=== PATIENT | female | born 1975 | race African-American/Black ===

== ENCOUNTER 2017-06-26 16:11 | Emergency (ER) | payer SELFPAY ==
[~2017-06-26 16:11] MED LIST: GABA600T PO; HYDR-3516 PO; IBUP-232 PO; NORC5TAB PO; TEMA30CA PO; [UNRECOGNIZED DRUG - CODE] PO
[2017-06-26 16:23] VITALS: BP 117/76; PULSE 73; RESP 18; TEMP 99; O2SAT 99
[2017-06-26] MEDS ORDERED: SODIUM CHLOR 0.9% 1000 ML INJ 1,000 ML IV SCH (17:18)
[2017-06-26] MEDS ORDERED: KETOROLAC TROMETHAMINE 30 MG/ML (IVP) VIAL IVP ONE (17:30)
[2017-06-26] MEDS ORDERED: ONDANSETRON HCL 4 MG/2 ML VIAL IVP ONE (17:30)
[2017-06-26] MEDS ORDERED: SODIUM CHLORIDE 0.9% FLUSH 10 ML FLUSH IV FLUSH PRN (17:30)
--- NOTE | 2017-06-26 17:33 | PD ---
Data Data Last Documented VS Vital Signs Date Time Temp Pulse Resp B/P (MAP) Pulse Ox O2 Delivery O2 Flow Rate FiO2 06/26/17 16:23 99.0 73 18 117/76 (90) 99 Orders Orders Complete Blood Count With Diff (06/26/17 16:29) Comprehensive Metabolic Panel (06/26/17 16:29) Urinalysis - C+S If Indicated (06/26/17 16:29) Lipase (06/26/17 16:29) Ondansetron Inj (Zofran Inj) (06/26/17 17:30) Sodium Chlor 0.9% 1000 Ml Inj (Ns 1000 M (06/26/17 17:18) Sodium Chloride 0.9% Flush (Ns Flush) (06/26/17 17:30) Ketorolac Inj (Toradol Inj) (06/26/17 17:30) MDM Supervised Visit with SAVI: Yes Narrative Course The history, exam, and medical decision-making in the associated mid-level provider note were completed with my assistance. I reviewed and agree with the findings presented. I attest that I had a [id number] encounter with the patient on the same day, and personally performed and documented my assessment and findings in the medical record. *My assessment and Findings: 41-year-old woman nausea vomiting diarrhea started yesterday after eating for crystals. She has copious vomiting copious watery diarrhea. She also has diffuse moderate abdominal pain. She is tearful and crying. She is a benign abdominal exam with some epigastric tenderness. Negative Torrez's. Recommend supportive treatment for infectious gastroenteritis. She states her oldest son ate the same food a little bit and got sick as well. Mike Martinez MD Jun 26, 2017 17:33
[2017-06-26] MEDS ORDERED: DICYCLOMINE HCL 20 MG/2 ML VIAL IM ONE (17:45)
[2017-06-26] MEDS ORDERED: LOPERAMIDE HCL 2 MG CAP PO ONE (17:45)
[2017-06-26] MEDS ORDERED: MORPHINE SULFATE 4 MG/ML INJ IV PUSH ONE ×2 (18:00→19:15)
--- NOTE | 2017-06-26 18:17 | PD ---
HPI Chief Complaint: GI Complaint Time Seen by Provider: 17:12 Travel History International Travel<30 days: No Contact w/Intl Traveler<30days: No Traveled to known affect area: No History of Present Illness HPI 41-year-old female presents to emergency department with complaint of nausea, vomiting, diarrhea since yesterday. Thinks she has food poisoning. Says she ate [employer] burgers and symptoms started an hour later. Her son also ate the food and got sick to. She reports severe abdominal cramping. Says she had a fever of 100.4 this morning. Last vomited an hour ago. Denies hematemesis, hematochezia. Denies history of abdominal surgeries. Has tried taking Pepto- Bismol and Kaopectate without relief of symptoms. Rates pain 8/10. Describes as cramping. Allergies to penicillin. Primary care provider is Dr. Hutchinson. Denies significant past medical history. Has no other medical complaints. No other modifying factors or associated signs and symptoms. PFSH Past Medical History Arthritis: Yes Blood Disorders: No Anxiety: Yes Cancer: No Cardiovascular Problems: No Chemotherapy: No Diminished Hearing: No Endocrine: No Gastrointestinal Disorders: No Genitourinary: No Immune Disorder: No Musculoskeletal: No Neurologic: No Psychiatric: No Reproductive: Yes (endometriosis ) Respiratory: No Radiation Therapy: No Sickle Cell Disease: No ?: Not LMP: "LAST WEEK" : 5 Para: 4 Miscarriage: 1 Tubal Ligation: Yes (07/2004) Past Surgical History Abdominal Surgery: No AICD: No Cardiac Surgery: No Ear Surgery: No Endocrine Surgery: No Eye Surgery: No Genitourinary Surgery: No Gynecologic Surgery: Yes (LAPROSCOPY IN 1995) Joint Replacement: No Neurologic Surgery: No Oral Surgery: No Pacemaker: No Thoracic Surgery: No Other Surgery: Yes Social History Alcohol Use: No Tobacco Use: Yes (SMOKES 1/2 PK A DAY) Substance Use: Yes Allergies-Medications (Allergen,Severity, Reaction): Coded Allergies: penicillin G (Unverified Allergy, Severe, hives, throat swelling, 06/26/17) Reported Meds & Prescriptions Reported Meds & Active Scripts Active Zofran Odt (Ondansetron Odt) 4 Mg Tab 4 Mg SL Q8HR PRN [place] (Hydrocodone-Acetaminophen) 5-325 mg Tab 1 Tab PO Q6H PRN Ibuprofen 600 Mg Tab 600 Mg PO Q6H PRN Cafergot (Ergotamine/Caffeine) 1 - Tab 1 Tab PO QIDPRN Reported Temazepam 30 Mg Cap 30 Mg PO HS PRN Gabapentin 600 Mg Tab 600 Mg PO TID Hydrocodone-Acetaminophen 5-325 mg Tab 1 Tab PO Q6H PRN Review of Systems Except as stated in HPI: all other systems reviewed are Neg Physical Exam Narrative GENERAL: Well-nourished, well-developed black female patient, in no acute distress; afebrile; tearful and appears painful SKIN: Warm and dry. HEAD: Atraumatic. Normocephalic. EYES: Pupils equal and round. No scleral icterus. No injection or drainage. ENT: Mucosa pink and moist. Airway patent. NECK: Trachea midline. CARDIOVASCULAR: Regular rate and rhythm. No murmur appreciated. RESPIRATORY: No accessory muscle use. Clear to auscultation. Breath sounds equal bilaterally. GASTROINTESTINAL: Abdomen soft, tenderness on palpation to epigastric region, nondistended. Hepatic and splenic margins not palpable. Bowel sounds are active 4 quadrants. Nonrigid. No rebound tenderness. No guarding. BACK: No CVA tenderness. MUSCULOSKELETAL: No obvious deformities. No clubbing. No cyanosis. No edema. NEUROLOGICAL: Awake and alert. Oriented 3. No obvious cranial nerve deficits. Motor grossly within normal limits. Normal speech. PSYCHIATRIC: Appropriate mood and affect; insight and judgment normal. Data Data Last Documented VS Vital Signs Date Time Temp Pulse Resp B/P (MAP) Pulse Ox O2 Delivery O2 Flow Rate FiO2 06/26/17 23:35 06/26/17 19:22 77 18 100 Room Air 06/26/17 16:23 99.0 Orders Orders Complete Blood Count With Diff (06/26/17 16:29) Comprehensive Metabolic Panel (06/26/17 16:29) Urinalysis - C+S If Indicated (06/26/17 16:29) Lipase (06/26/17 16:29) Ondansetron Inj (Zofran Inj) (06/26/17 17:30) Sodium Chlor 0.9% 1000 Ml Inj (Ns 1000 M (06/26/17 17:18) Sodium Chloride 0.9% Flush (Ns Flush) (06/26/17 17:30) Ketorolac Inj (Toradol Inj) (06/26/17 17:30) Loperamide (Imodium) (06/26/17 17:45) Dicyclomine Inj (Bentyl Inj) (06/26/17 17:45) Morphine Inj (Morphine Inj) (06/26/17 18:00) Morphine Inj (Morphine Inj) (06/26/17 19:15) Sodium Chlor 0.9% 1000 Ml Inj (Ns 1000 M (06/26/17 19:15) Ed Discharge Order (06/26/17 23:22) Ed Discharge Order (06/26/17 23:24) Labs Laboratory Tests Test 06/26/17 16:36 06/26/17 18:10 06/26/17 19:55 Urine Color YELLOW Urine Turbidity HAZY Urine pH 7.5 Urine Specific [place] 1.023 Urine Protein 30 mg/dL Urine Glucose (UA) NEG mg/dL Urine Ketones 10 mg/dL Urine Occult Blood SMALL Urine Nitrite NEG Urine Bilirubin NEG Urine Urobilinogen 8.0 MG/DL Urine Leukocyte Esterase SMALL Urine RBC 58 /hpf Urine WBC 4 /hpf Urine Squamous Epithelial Cells 9 /hpf Urine Bacteria RARE /hpf Urine Mucus MOD /lpf Microscopic Urinalysis Comment CULT NOT INDICATED White Blood Count 8.4 TH/MM3 Red Blood Count 4.47 MIL/MM3 Hemoglobin 14.2 GM/DL Hematocrit 41.8 % Mean Corpuscular Volume 93.4 FL Mean Corpuscular Hemoglobin 31.8 PG Mean Corpuscular Hemoglobin Concent 34.0 % Red Cell Distribution Width 13.8 % Platelet Count 281 TH/MM3 Mean Platelet Volume 8.4 FL Neutrophils (%) (Auto) 55.6 % Lymphocytes (%) (Auto) 35.2 % Monocytes (%) (Auto) 6.6 % Eosinophils (%) (Auto) 2.2 % Basophils (%) (Auto) 0.4 % Neutrophils # (Auto) 4.7 TH/MM3 Lymphocytes # (Auto) 2.9 TH/MM3 Monocytes # (Auto) 0.6 TH/MM3 Eosinophils # (Auto) 0.2 TH/MM3 Basophils # (Auto) 0.0 TH/MM3 CBC Comment DIFF FINAL Differential Comment Blood Urea Nitrogen 5 MG/DL Creatinine 0.93 MG/DL Random Glucose 84 MG/DL Total Protein 7.9 GM/DL Albumin 3.1 GM/DL Calcium Level 7.5 MG/DL Alkaline Phosphatase 62 U/L Aspartate Amino Transf (AST/SGOT) 13 U/L Alanine Aminotransferase (ALT/SGPT) 19 U/L Total Bilirubin 0.7 MG/DL Sodium Level 143 MEQ/L Potassium Level 3.5 MEQ/L Chloride Level 112 MEQ/L Carbon Dioxide Level 22.2 MEQ/L Anion Gap 9 MEQ/L Estimat Glomerular Filtration Rate 81 ML/MIN Lipase 59 U/L MDM Medical Decision Making Medical Screen Exam Complete: Yes Emergency Medical Condition: Yes Medical Record Reviewed: Yes Differential Diagnosis Gastroenteritis, gastritis, pancreatitis Narrative Course 41-year-old female with abdominal cramping, nausea, vomiting, diarrhea since yesterday. Symptoms started after eating [employer]. Her son had similar symptoms after eating the burgers also. She reports fever of 100.4 this morning. Patient is afebrile in the ER. She is tearful and appears painful. Has epigastric tenderness on palpation. Dr. Martinez evaluated the patient and we discussed the plan of care. IV, normal saline bolus, CBC, CMP, urinalysis, lipase, Zofran, Toradol, Bentyl ordered. 1800: Patient continues to complain of abdominal pain. Morphine 4 mg IV ordered. 1900: CBC unremarkable. On reexamination patient is in position and crying in pain. States her pain is still of 10 out of 10. 1923: Report given to Dr. Bourgeois at change of shift. See his note for final patient disposition. Scripts Ondansetron Odt (Zofran Odt) 4 Mg Tab 4 MG SL Q8HR Y for Nausea/Vomiting, #10 TAB 0 Refills Prov: Alberto Bourgeois MD 06/26/17 Disposition: DISCHARGE HOME Condition: Stable Jessica Gabriel Jun 26, 2017 18:17
[2017-06-26 18:55] LABS: AUTOMATED NEUTROPHIL # 4.7 TH/MM3 (1.8-7.7); BASOPHIL % 0.4 % (0.0-2.0); EOSINOPHIL # 0.2 TH/MM3 (0-0.4); EOSINOPHIL % 2.2 % (0.0-4.0); HEMATOCRIT 41.8 % (35.0-46.0); HEMOGLOBIN 14.2 GM/DL (11.6-15.3); LYMPH % 35.2 % (9.0-44.0); LYMPHOCYTE # 2.9 TH/MM3 (1.0-4.8); MEAN CELL VOLUME 93.4 FL (80.0-100.0); MEAN CORPUSCULAR HEMOGLOBIN 31.8 PG (27.0-34.0); MEAN PLATELET VOLUME 8.4 FL (7.0-11.0); MONO % 6.6 % (0.0-8.0); MONOCYTE # 0.6 TH/MM3 (0-0.9); NEUT % 55.6 % (16.0-70.0); PLATELET COUNT 281 TH/MM3 (150-450); RED BLOOD COUNT 4.47 MIL/MM3 (4.00-5.30); RED CELL DISTRIBUTION WIDTH 13.8 % (11.6-17.2); WHITE BLOOD COUNT 8.4 TH/MM3 (4.0-11.0)
[2017-06-26 19:14] LABS: ALKALINE PHOSPHATASE 62 U/L (45-117); TOTAL BILIRUBIN ADULT 0.7 MG/DL (0.2-1.0); TOTAL PROTEIN 7.9 GM/DL (6.4-8.2)
[2017-06-26] MEDS ORDERED: SODIUM CHLOR 0.9% 1000 ML INJ 1,000 ML IV ONE (19:15)
[2017-06-26 19:22] VITALS: BP 129/58; PULSE 77; RESP 18; O2SAT 100
[2017-06-26 20:49] LABS: BLOOD UREA NITROGEN 5 MG/DL (7-18); CALCIUM 7.5 MG/DL (8.5-10.1); CHLORIDE 112 MEQ/L (98-107); GLUCOSE,RANDOM 84 MG/DL (74-106); SODIUM (NA) 143 MEQ/L (136-145)
[2017-06-26 20:54] LABS: ALT (GPT) 19 U/L (10-53); AST (GOT) 13 U/L (15-37)
[2017-06-26 21:09] LABS: CREATININE 0.93 MG/DL (0.50-1.00); GLOMERULAR FILTRATION RATE 81 ML/MIN (>89)
[2017-06-26 21:10] LABS: BICARBONATE 22.2 MEQ/L (21.0-32.0)
[2017-06-26 21:35] LABS: ALBUMIN 3.1 GM/DL (3.4-5.0)
[2017-06-26 21:47] LABS: BACTERIA, URINE RARE /hpf; BILIRUBIN, URINE NEG (NEG); BLOOD, URINE SMALL (NEG); GLUCOSE,URINE NEG (NEG); KETONE, URINE 10 mg/dL (NEG); MUCUS URINE MOD /lpf (OCC); NITRITE,URINE NEG (NEG); PH, URINE 7.5 (5.0-8.5); SQUAMOUS EPITHELIAL CELL URINE 9 /hpf (0-5); URINE COLOR YELLOW (YELLW/STRAW); URINE LEUKOCYTE ESTERASE SMALL (NEG)
[2017-06-26] MEDS ORDERED: ZOFR4TAB3 SL (23:23)
--- NOTE | 2017-06-26 23:24 | PD ---
Data Data Last Documented VS Vital Signs Date Time Temp Pulse Resp B/P (MAP) Pulse Ox O2 Delivery O2 Flow Rate FiO2 06/26/17 23:35 06/26/17 19:22 77 18 100 Room Air 06/26/17 16:23 99.0 Orders Orders Complete Blood Count With Diff (06/26/17 16:29) Comprehensive Metabolic Panel (06/26/17 16:29) Urinalysis - C+S If Indicated (06/26/17 16:29) Lipase (06/26/17 16:29) Ondansetron Inj (Zofran Inj) (06/26/17 17:30) Sodium Chlor 0.9% 1000 Ml Inj (Ns 1000 M (06/26/17 17:18) Sodium Chloride 0.9% Flush (Ns Flush) (06/26/17 17:30) Ketorolac Inj (Toradol Inj) (06/26/17 17:30) Loperamide (Imodium) (06/26/17 17:45) Dicyclomine Inj (Bentyl Inj) (06/26/17 17:45) Morphine Inj (Morphine Inj) (06/26/17 18:00) Morphine Inj (Morphine Inj) (06/26/17 19:15) Sodium Chlor 0.9% 1000 Ml Inj (Ns 1000 M (06/26/17 19:15) Ed Discharge Order (06/26/17 23:22) Ed Discharge Order (06/26/17 23:24) Labs Laboratory Tests Test 06/26/17 16:36 06/26/17 18:10 06/26/17 19:55 Urine Color YELLOW Urine Turbidity HAZY Urine pH 7.5 Urine Specific [place] 1.023 Urine Protein 30 mg/dL Urine Glucose (UA) NEG mg/dL Urine Ketones 10 mg/dL Urine Occult Blood SMALL Urine Nitrite NEG Urine Bilirubin NEG Urine Urobilinogen 8.0 MG/DL Urine Leukocyte Esterase SMALL Urine RBC 58 /hpf Urine WBC 4 /hpf Urine Squamous Epithelial Cells 9 /hpf Urine Bacteria RARE /hpf Urine Mucus MOD /lpf Microscopic Urinalysis Comment CULT NOT INDICATED White Blood Count 8.4 TH/MM3 Red Blood Count 4.47 MIL/MM3 Hemoglobin 14.2 GM/DL Hematocrit 41.8 % Mean Corpuscular Volume 93.4 FL Mean Corpuscular Hemoglobin 31.8 PG Mean Corpuscular Hemoglobin Concent 34.0 % Red Cell Distribution Width 13.8 % Platelet Count 281 TH/MM3 Mean Platelet Volume 8.4 FL Neutrophils (%) (Auto) 55.6 % Lymphocytes (%) (Auto) 35.2 % Monocytes (%) (Auto) 6.6 % Eosinophils (%) (Auto) 2.2 % Basophils (%) (Auto) 0.4 % Neutrophils # (Auto) 4.7 TH/MM3 Lymphocytes # (Auto) 2.9 TH/MM3 Monocytes # (Auto) 0.6 TH/MM3 Eosinophils # (Auto) 0.2 TH/MM3 Basophils # (Auto) 0.0 TH/MM3 CBC Comment DIFF FINAL Differential Comment Blood Urea Nitrogen 5 MG/DL Creatinine 0.93 MG/DL Random Glucose 84 MG/DL Total Protein 7.9 GM/DL Albumin 3.1 GM/DL Calcium Level 7.5 MG/DL Alkaline Phosphatase 62 U/L Aspartate Amino Transf (AST/SGOT) 13 U/L Alanine Aminotransferase (ALT/SGPT) 19 U/L Total Bilirubin 0.7 MG/DL Sodium Level 143 MEQ/L Potassium Level 3.5 MEQ/L Chloride Level 112 MEQ/L Carbon Dioxide Level 22.2 MEQ/L Anion Gap 9 MEQ/L Estimat Glomerular Filtration Rate 81 ML/MIN Lipase 59 U/L MDM Medical Record Reviewed: Yes Supervised Visit with SAVI: Yes Narrative Course CBC & BMP Diagram 06/26/17 18:10 06/26/17 19:55 Total Protein 7.9, Albumin 3.1 L, Calcium Level 7.5 L, Alkaline Phosphatase 62, Aspartate Amino Transf (AST/SGOT) 13 L, Alanine Aminotransferase (ALT/SGPT) 19, Total Bilirubin 0.7 Urinalysis is negative for UTI The patient is resting comfortably and feels better, is alert and in no distress. The patients results and examination findings were discussed. The repeat examination is unremarkable and benign. The history, exam, diagnostic testing, and current condition do not suggest any significant pathology to warrant further testing, continued ED treatment, admission, or surgical evaluation at this point. The vital signs have been stable. The patient does not have uncontrollable pain, intractable vomiting, or other significant symptoms. The patient's condition is stable and appropriate for discharge. The patient will pursue further outpatient evaluation with a primary care physician or other designated or consulting physician as indicated in the discharge instructions. The patient expressed understanding and was agreeable with this plan. Diagnosis Primary Impression: Nausea & vomiting Qualified Codes: R11.2 - Nausea with vomiting, unspecified Additional Impression: Abdominal pain Med/Other Pt SpecificInfo: Prescription(s) given Scripts Ondansetron Odt (Zofran Odt) 4 Mg Tab 4 MG SL Q8HR Y for Nausea/Vomiting, #10 TAB 0 Refills Prov: Alberto Bourgeois MD 06/26/17 Disposition: 01 DISCHARGE HOME Condition: Stable Alberto Bourgeois MD Jun 26, 2017 23:24
== END 2017-06-26 23:42 | disposition home or self-care (01) ==
LOC: NEPD 16:11
DX: R11.2 Nausea with vomiting, unspecified (principal); R10.9 Unspecified abdominal pain
CPT/HCPCS: 80053; 81001; 83690; 85025; 96361; 96372; 96374; 96375; 96376; 99284; J0500; J1885; J2270; J2405; J7030